=== PATIENT | male | born 1980 | race African-American/Black ===

== ENCOUNTER 2020-11-25 11:14 | Emergency (ER) | payer SELFPAY ==
[~2020-11-25] VITALS: Ht 180.3 cm; Wt 88.0 kg
[2020-11-25] MEDS ORDERED: ACYC200C31 MT (13:54)
[2020-11-25 14:19] VITALS: BP 130/59
== END 2020-11-25 14:20 | disposition home or self-care (01) ==
LOC: ER 11:14
DX: A60.01 Herpesviral infection of penis (principal)
CPT/HCPCS: 99283